=== PATIENT | female | born 1975 | race Caucasian/White ===

== ENCOUNTER 2021-10-24 09:49 | Observation (INO) | payer BC | END 2021-10-24 15:55 | disposition home or self-care (01) | LOC: SPU 09:49 | PROVIDERS: ADMIT Specialist; ATTEND Specialist | DX: O36.8330 Maternal care for abnormalities of the fetal heart rate or rhythm, third trimester, not applicable or unspecified (principal); Z3A.36 36 weeks gestation of pregnancy | CPT/HCPCS: 59025; 81002; G0378 ==

== ENCOUNTER 2021-10-27 09:34 | Observation (INO) | payer BC ==
[~2021-10-27] VITALS: Ht 170.2 cm; Wt 101.6 kg
== END 2021-10-27 11:25 | disposition home or self-care (01) ==
LOC: SPU 09:34
PROVIDERS: ADMIT Specialist; ATTEND Specialist
DX: Z34.83 Encounter for supervision of other normal pregnancy, third trimester (principal); Z3A.37 37 weeks gestation of pregnancy
CPT/HCPCS: 59025; G0378

== ENCOUNTER 2021-11-02 14:16 | Inpatient (IN) | payer BC ==
[~2021-11-02] VITALS: Ht 170.2 cm; Wt 102.1 kg
[2021-11-02] MEDS ORDERED: CEFAZOLIN 2 GM IVPB PREMIX 50 ML IV ONE ×2 (14:30→15:50)
[2021-11-02] MEDS ORDERED: LR 1,000 ML IV ONE (14:30)
[2021-11-02 15:17] LABS: BILIRUBIN,URINE NEGATIVE (NEGATIVE); BLOOD, URINE NEGATIVE (NEGATIVE); CLARITY/URINE CLEAR (CLEAR); COLOR,URINE YELLOW (YELLOW); GLUCOSE,URINE NEGATIVE (NEGATIVE); KETONES,URINE 1+ (NEGATIVE); LEUKOCYTE ESTERASE ,URINE NEGATIVE (NEGATIVE); NITRITE, URINE NEGATIVE (NEGATIVE); PROTEIN URINE NEGATIVE (NEGATIVE); UROBILINOGEN,URINE 0.2 (0.2-1.0)
[2021-11-02 15:22] LABS: BASOPHILS % (AUTO) 0.4 % (0.0-2.0); EOSINOPHILS % (AUTO) 0.6 % (0.0-4.0); HEMATOCRIT 33.6 % (36-48); HEMOGLOBIN 11.5 g/dL (12.0-16.0); LYMPHOCYTES # (AUTO) 1.5 K/uL (1.0-5.5); LYMPHOCYTES % (AUTO) 21.5 % (20.5-51.5); MEAN CORPUSCULAR HEMOGLOBIN 28 pg (27-31); MEAN CORPUSCULAR HGB CONC 34 % (32-36); MEAN CORPUSCULAR VOLUME 83 fL (79.0-98.0); MONOCYTES # (AUTO) 0.5 K/uL (0.0-1.0); MONOCYTES % (AUTO) 7.3 % (1.7-9.3); NEUTROPHILS % (AUTO) 70.2 % (40.0-70.0); PLATELET COUNT (AUTO) 159 K/uL (130-430); RED BLOOD CELL COUNT(AUTO) 4.07 MIL/uL (4.2-6.2); RED CELL DISTRIBUTION WIDTH 15.2 % (9.0-15.0); WHITE BLOOD COUNT (AUTO) 7.1 K/uL (4.8-10.8)
[2021-11-02] MEDS ORDERED: LR 1,000 ML IV.SOLN IV ONE (15:50)
[2021-11-02] MEDS ORDERED: NS IRRIG SOLN 1000 ML IR ONE (15:50)
[2021-11-02] MEDS ORDERED: MORPHINE SULFATE 10MG/10ML PF AMP EP ONE (15:50)
[2021-11-02] MEDS ORDERED: BUPIVACAINE /DEX PF 0.75% SPINAL 2 ML AMP INJ ONE (15:50)
[2021-11-02] MEDS ORDERED: ePHEDrine sulfate 50 MG/ML VIAL IVP ONE (15:50)
[2021-11-02] MEDS ORDERED: ONDANSETRON HCL 4 MG/2 ML VIAL IVP ONE (15:50)
[2021-11-02] MEDS ORDERED: DIPHENHYDRAMINE INJ 50 MG/ML VIAL IVP PRN (16:30)
[2021-11-02] MEDS ORDERED: fentaNYL CITRATE/PF 100 MCG/2 ML AMP IVP PRN ×2 (16:30)
[2021-11-02] MEDS ORDERED: ONDANSETRON HCL 4 MG/2 ML VIAL IVP PRN (16:30)
[2021-11-02] MEDS ORDERED: METOCLOPRAMIDE HCL 10 MG/2 ML VIAL IVP PRN (16:30)
[2021-11-02] MEDS ORDERED: NALBUPHINE HCL 10 MG/ML AMP IVP PRN (16:30)
[2021-11-02] MEDS ORDERED: NALOXONE HCL 0.4 MG/ML AMP (NARCAN) IVP PRN ×3 (16:30→17:30)
[2021-11-02] MEDS ORDERED: KETOROLAC TROMETHAMINE 60 MG/2 ML VIAL IM PRN (16:30)
[2021-11-02] MEDS ORDERED: MORPHINE SULFATE 10MG/10ML PF AMP SP SCH (16:30)
[2021-11-02] MEDS ORDERED: OXYTOCIN 10 UNIT/ML VIAL ONE (16:48)
[2021-11-02 17:11] VITALS: BP_SYST 131
[2021-11-02] MEDS ORDERED: BISACODYL 10 MG/SUPPOSITORY RC PRN (17:30)
[2021-11-02] MEDS ORDERED: LR 1,000 ML IV SCH (17:30)
[2021-11-02] MEDS ORDERED: HYDROcodone/ACETAMIN 5-325 MG TAB (NORCO/ VICODIN) PO PRN (17:30)
[2021-11-02] MEDS ORDERED: LANOLIN 7 GM OINT. TP PRN (17:30)
[2021-11-02] MEDS ORDERED: TEMAZEPAM 15 MG CAPSULE PO PRN (17:30)
[2021-11-02] MEDS ORDERED: OXYCODONE/ACETAMINOPHEN 5-325 TABLET PO PRN (17:30)
[2021-11-02] MEDS ORDERED: MEASLES,MUMPS&RUBELLA VACC/PF 12500 UNIT/0.5 ML VIAL SUBQ PRN (17:30)
[2021-11-02] MEDS ORDERED: ANUSOL 1 EA SUPP.RECT (PREPARATION H) RC PRN (17:30)
[2021-11-02] MEDS ORDERED: RHO(D) IMMUNE GLOBULIN/MALTOSE 1500 UNITS/1.3 ML (WINHRO) IM PRN (17:30)
[2021-11-02] MEDS ORDERED: DIPH-TET-PERTUS Vaccine 0.5 ML VIAL (ADACEL) I.M. PRN (17:30)
[2021-11-02] MEDS: SIMETHICONE 80 MG TAB.CHEW PO PRN (20:41)
[2021-11-02] MEDS: SENNOSIDES/DOCUSATE SODIUM 1 TAB TABLET(SENOKOT-S) PO SCH (20:42)
[2021-11-02] MEDS: DOCUSATE SODIUM 100 MG CAPSULE PO SCH (20:42)
[2021-11-02] MEDS: ONDANSETRON HCL 4 MG/2 ML VIAL IVP PRN (20:50)
[2021-11-02] MEDS: OXYTOCIN/0.9 % SODIUM CHLORIDE 1,000 ML IV SCH (23:13)
[2021-11-02] MEDS: CEFAZOLIN 1 GM IVPB PREMIX 50 ML IV SCH (23:53)
[2021-11-03] MEDS: ONDANSETRON HCL 4 MG/2 ML VIAL IVP PRN (02:22)
[2021-11-03] MEDS: ACETAMINOPHEN I.V. 1000 MG 100 ML IV SCH ×3 (02:59→14:33)
[2021-11-03] MEDS: KETOROLAC TROMETHAMINE 30 MG VIAL IVP SCH ×3 (05:59→17:57)
[2021-11-03] MEDS: SIMETHICONE 80 MG TAB.CHEW PO PRN ×2 (06:11→10:18)
[2021-11-03] MEDS: CEFAZOLIN 1 GM IVPB PREMIX 50 ML IV SCH ×2 (06:57→12:18)
[2021-11-03 08:09] LABS: BASOPHILS % (AUTO) 0.2 % (0.0-2.0); HEMATOCRIT 31.8 % (36-48); LYMPHOCYTES % (AUTO) 9.4 % (20.5-51.5); MEAN CORPUSCULAR HEMOGLOBIN 29 pg (27-31); MEAN CORPUSCULAR HGB CONC 35 % (32-36); MEAN CORPUSCULAR VOLUME 83 fL (79.0-98.0); MONOCYTES # (AUTO) 0.6 K/uL (0.0-1.0); MONOCYTES % (AUTO) 5.5 % (1.7-9.3); NEUTROPHILS # (AUTO) 9.2 K/uL (1.8-7.7); NEUTROPHILS % (AUTO) 84.9 % (40.0-70.0); PLATELET COUNT (AUTO) 158 K/uL (130-430); RED BLOOD CELL COUNT(AUTO) 3.83 MIL/uL (4.2-6.2); RED CELL DISTRIBUTION WIDTH 15.2 % (9.0-15.0); WHITE BLOOD COUNT (AUTO) 10.8 K/uL (4.8-10.8)
[2021-11-03] MEDS: DOCUSATE SODIUM 100 MG CAPSULE PO SCH ×2 (08:55→21:13)
[2021-11-03] MEDS: OXYCODONE/ACETAMINOPHEN *10*mg/325 mg TABLET PO PRN ×2 (10:18→18:08)
[2021-11-03] MEDS: OXYTOCIN/0.9 % SODIUM CHLORIDE 1,000 ML IV SCH (15:10)
[2021-11-03] MEDS: BETHANECHOL CHLORIDE 25 MG TABLET (URECHOLINE) PO SCH (21:13)
[2021-11-03] MEDS: SENNOSIDES/DOCUSATE SODIUM 1 TAB TABLET(SENOKOT-S) PO SCH (21:13)
[2021-11-04] MEDS: KETOROLAC TROMETHAMINE 30 MG VIAL IVP SCH
[2021-11-04] MEDS: ACETAMINOPHEN I.V. 1000 MG 100 ML IV SCH (03:00)
[2021-11-04] MEDS: IBUPROFEN 600 MG TABLET PO SCH ×3 (03:26→18:17)
[2021-11-04] MEDS: SIMETHICONE 80 MG TAB.CHEW PO PRN ×2 (03:31→18:45)
[2021-11-04] MEDS ORDERED: HYDROmorphone 2 MG/ML VIAL IVP PRN (08:00)
[2021-11-04] MEDS: DOCUSATE SODIUM 100 MG CAPSULE PO SCH ×2 (09:00→21:05)
[2021-11-04] MEDS: BETHANECHOL CHLORIDE 25 MG TABLET (URECHOLINE) PO SCH ×3 (09:03→21:05)
[2021-11-04] MEDS: OXYCODONE/ACETAMINOPHEN *10*mg/325 mg TABLET PO PRN ×3 (14:49→21:05)
[2021-11-05] MEDS: IBUPROFEN 600 MG TABLET PO SCH ×3 (00:12→11:34)
[2021-11-05] MEDS: OXYCODONE/ACETAMINOPHEN *10*mg/325 mg TABLET PO PRN ×4 (01:12→14:55)
[2021-11-05] MEDS: SIMETHICONE 80 MG TAB.CHEW PO PRN (09:06)
[2021-11-05] MEDS: BETHANECHOL CHLORIDE 25 MG TABLET (URECHOLINE) PO SCH (09:06)
[2021-11-05] MEDS: DOCUSATE SODIUM 100 MG CAPSULE PO SCH (09:06)
[2021-11-05] MEDS ORDERED: HYDR-3919 PO (13:25)
[2021-11-05] MEDS ORDERED: PERC10 PO (13:25)
== END 2021-11-05 15:00 | disposition home or self-care (01) | DRG 785 ==
LOC: SPU 14:16
PROVIDERS: ADMIT Specialist; ATTEND Specialist
PROC: 0UB70ZZ Excision of Bilateral Fallopian Tubes, Open Approach (ICD-10-PCS; 2021-11-02)
PROC: 10D00Z1 Extraction of Products of Conception, Low, Open Approach (ICD-10-PCS; principal; 2021-11-02 16:00)
DX: O34.211 Maternal care for low transverse scar from previous cesarean delivery (principal); O40.3XX0 Polyhydramnios, third trimester, not applicable or unspecified; O76 Abnormality in fetal heart rate and rhythm complicating labor and delivery; O36.63X0 Maternal care for excessive fetal growth, third trimester, not applicable or unspecified; Z20.822 Contact with and (suspected) exposure to COVID-19; Z37.0 Single live birth; Z3A.37 37 weeks gestation of pregnancy; Z30.2 Encounter for sterilization
CPT/HCPCS: 36415; 81003; 85025; 86592; 86886; 86900; 86901; 88302; 94760; J0131; J0690; J1170; J1885; J2274; J2405; J2590; J3490; J7120